=== PATIENT | female | born 1945 | race Caucasian/White ===

== ENCOUNTER → 2018-07-15 | Outpatient (CLI) | payer OTHER ==
[~2018-07-15] MED LIST: AMIT-104 PO; FLE100 PO; LEV112 PO; LEV125 PO; LEVO137T23 PO; LEVO150T78 PO; LOR05 PO; LOR1 PO; LORA-630 PO; METO25TA23 PO; METO25TA91 PO; TRAV2.5D4 OP; ZOL5 PO; ZOLP-1 PO; [UNRECOGNIZED DRUG - CODE] PO
--- NOTE | 2018-07-15 09:18 | RADIOLOGY IMAGING REPORT ---
FACILITY: [facility] PATIENT NAME: Moon Hinds : 1945 MR: [id number] V: [id number] EXAM DATE: ORDERING PHYSICIAN: ROSALINA ETIENNE TECHNOLOGIST: Location: [facility] Patient: Moon Hinds : 1945 Visit/Account:[id number] Date of Sevice: 07/15/2018 DEXA Scan Clinical history: Asymptomatic postmenopausal state. Comparison: DEXA scan from 01/20/2008. LUMBAR SPINE: The bone mineral density (BMD) measured from L1-L4 correlates with a Z-score of -0.2 and a T-score of -1.9 which is osteopenia as defined by the World Health Organization. The corresponding risk of fra cture in the lumbar spine is 3-4 times increased compared with a young adult reference population. T his value has decrease by 6.7 % since the prior study. More than 5% change is considered significant . HIP: Bone mineral density (BMD) measured in the LEFT total hip region correlates with a Z-score 0.7 and a T-score of -0.8 which is normal as defined by the World Health Organization. The corresponding risk of fracture in the hip is 1-2 t imes increased compared to a young adult reference population. This value has decrease by 1.0 % since the prior study. More than 5% change is considered significant. T score left femoral neck -1.4 Bone mineral density (BMD) measured in the Femoral Neck region measures 0.842 g/cm?. IMPRESSION: 1. Lumbar spine: Osteopenia. There has been 6.7% decrease in the bone mineral density since the pre vious exam. 2. Left Total Hip: Normal. There has been 1% decrease in the bone mineral density since the previou s exam. 3. Femoral Neck: Bone Mineral Density is 0.842 g/cm? The next DEXA scan of this patient should include the following sites: L1-L4 and the left hip. FRAX? WHO Fracture Risk Assessment Tool link: <http://www.shef.ac.uk/FRAX/tool.jsp?locationValue=9> PLEASE NOTE: 1) The World Health Organization defines low BMD as follows: T-score Normal > -1 Osteopenia < -1 and > -2.5 Osteoporosis < -2.5 without fractures Established osteoporosis < -2.5 with fractures 2) In general, you may wish to consider: Diagnosis Treatment Follow-up DEXA Normal BMD Prevention 2-3 years Osteopenia Prevention/therapy 1-2 years Osteoporosis Therapy Yearly 3) Fracture risk estimated from the T-score is more accurate for vertebral fractures (often spontane ous) than for hip fractures. Report Dictated By: Miesha Avila MD at 07/15/2018 9:11 AM Report E-Signed By: Miesha Avila MD at 07/15/2018 9:12 AM WSN:[email or web address]
--- NOTE | 2018-07-15 17:08 | RADIOLOGY IMAGING REPORT ---
FACILITY: [facility] PATIENT NAME: FEDERICO DALE : [id number] MR: [id number] V: [id number] EXAM DATE: [id number] ORDERING PHYSICIAN: ORSALINA ETIENNE TECHNOLOGIST: Dolores Villalobos PROCEDURE:BILATERAL DIGITAL SCREENING MAMMOGRAM WITH CAD ASSISTED INTERPRETATION & 3D TOMOSYNTHESIS COMPARISON:Prior mammograms 01/15/17. INDICATIONS:SCREENING FINDINGS: There are areas of scattered fibroglandular densities throughout the breasts. The parenchymal pattern has remained stable allowing for difference in mammographic technique & patient positioning. DIAGNOSTIC CATEGORY 1--NEGATIVE. RECOMMENDATIONS: ROUTINE MAMMOGRAM AND CLINICAL EVALUATION. IMPRESSION: BIRADS 1: Negative. No significant abnormality is seen. Dictated by: Miesha Avila M.D. on 07/15/2018 at 9:24 Transcribed by: MATI on 07/15/2018 at 9:49 Approved by: Miesha Avila M.D. on 07/15/2018 at 17:06 [facility]
== END ==
LOC: MAMO 01:11
PROVIDERS: ATTEND Nurse Practitioner Family
DX: Z12.31 Encounter for screening mammogram for malignant neoplasm of breast (principal); M85.88 Other specified disorders of bone density and structure, other site
CPT/HCPCS: 77063; 77067; 77080

== ENCOUNTER 2018-07-24 01:50 | Day surgery (SDC) | payer OTHER ==
[~2018-07-24] VITALS: Ht 167.6 cm; Wt 64.9 kg
[2018-07-24 06:28] VITALS: BP 148/92
[2018-07-24] MEDS ORDERED: LIDOCAINE/SOD BICARB 8.4% SYR ID ONE (06:30)
[2018-07-24] MEDS ORDERED: NORMOSOL R SOLN(*) 1000 ML BAG 1,000 ML IV PRN (06:30)
[2018-07-24] MEDS ORDERED: PROPOFOL EMUL(*) 10MG/ML 20 ML 40 ML ONE (07:37)
[2018-07-24] MEDS ORDERED: LIDOCAINE MPF 1% 5 ML VIAL ONE (07:37)
[2018-07-24 07:42] VITALS: BP 120/68
--- NOTE | 2018-07-24 07:47 | Short(Outpt) Discharge Summary ---
Discharge Summary Reason for Hosp/Final Diag: (1) Encounter for screening colonoscopy Hospital Course & Plan: 72 yo f presented for screening colonoscopy. she tolerated the procedure well and there were no complications. repeat colonoscopy 10 yrs. she will be discharged home when criteria met. Discharge Instructions Home Meds Active Scripts Levothyroxine Sodium (LEVOTHYROXINE SODIUM) 0.112 Mg Tab, 1 TAB PO QDAY, #90 TAB 0 Refills Prov:ROSALINA ETIENNE APRNP-C 06/15/18 Metoprolol Succinate (METOPROLOL SUCCINATE) 25 Mg Tab.er.24h, 1 TAB PO QDAY, #90 TAB 4 Refills Prov:ROSALINA ETIENNE APRN BOOKKEEPING CLERK-C 06/12/17 Reported Medications Flecainide Acetate (FLECAINIDE ACETATE) 100 Mg Tab, 50 MG PO QHS, TAB 07/10/18 Flecainide Acetate (FLECAINIDE ACETATE) 100 Mg Tab, 75 MG PO QAM, TAB 07/10/18 Lorazepam (LORAZEPAM) 1 Mg Tab, 0.5-1 TAB PO QHS PRN for INSOMNIA, TAB 06/15/18 Diet: Regular Activity: As Tolerated Special Instructions: repeat colonoscopy 10 yrs. ADELINE RAMIREZ Jul 24, 2018 07:47
--- NOTE | 2018-07-24 07:51 | NUR ---
0750-PT HAD ARRIVED TO [facility] FROM OR ON CART IN [facility]AT POSITION. AT BEDSIDE. SETTLED AND ASSESSMENT DONE BY HEYDI SHEFFIELD. REPORT AT THIS TIME. WILL CONTINUE TO MONITOR. 0752-PT TRIALD ON ROOM AIR AT THIS TIME
--- NOTE | 2018-07-24 07:53 | NUR ---
0753-DR RAMIREZ TO BEDSIDE CHECKING ON PT. VSS
[2018-07-24 08:01] VITALS: BP 131/74
--- NOTE | 2018-07-24 08:06 | NUR ---
0806-PT GIVEN WATER AT THIS TIME. DENIES PAIN AND NAUSEA AT THIS TIME
[2018-07-24 08:15] VITALS: BP 136/70
[2018-07-24 08:35] VITALS: BP_SYST 127; BP_SYST 146; BP_DIAS 79; BP_DIAS 80
== END 2018-07-24 08:47 | disposition home or self-care (01) ==
LOC: OR 01:50
PROVIDERS: ATTEND Surgery
DX: Z12.11 Encounter for screening for malignant neoplasm of colon (principal); Z83.71 Family history of colonic polyps
CPT/HCPCS: 00812; 45378; J2001; J2704